=== PATIENT | male | born 1970 | race American Indian/Alaskan Native ===

== ENCOUNTER 2017-04-13 03:18 | Inpatient (IN) | payer OTHER ==
[2017-04-13] MEDS ORDERED: Azithromycin 500 MG in Sodium Chloride 0.9% 250 ML IVPB STA (03:46)
[2017-04-13] MEDS ORDERED: Promethazine/Cod 6.25mg-10mg/5ml Syr UD PO STA (03:49)
--- NOTE | 2017-04-13 04:03 | ED PDOC ---
HPI: CCC, URI, Sore Throat Time Seen by Provider: 04/13/17 03:28 Chief Complaint (Nursing): Cough, Cold, Congestion Chief Complaint (Provider): cough SOB x 1 week History Per: Patient History/Exam Limitations: no limitations Have you had recent travel within the past 21 days to any of the following countries: [place], [place], [place] or [place]?: No Onset/Duration Of Symptoms: Days (7) Current Symptoms Are (Timing): Still Present Sick Contacts (Context): Family Member(s) () Associated Symptoms: Fever, Chills, Cough Severity: Mild Pain Scale Rating Of: 3 Additional Complaint(s): Patient is a 47 yo AA male with c/o fever and dry cough z 1 week. 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 Dr paiz started pt on nnew course of Cipro however pt reports symptoms have worsened tonight with chills and fever and chest tightness as well as dyspnea. He denies N/V/D, rash. Past Medical History Reviewed: Historical Data, Nursing Documentation, Vital Signs Vital Signs: Last Vital Signs Temp 100.8 F H 04/13/17 05:15 Pulse 94 H 04/13/17 05:15 Resp 28 H 04/13/17 05:15 BP 102/70 04/13/17 05:15 Pulse Ox 98 04/13/17 05:51 - Medical History PMH: No Chronic Diseases Other PMH: Sickle Cell trait - Surgical History Surgical History: No Surg Hx - Family History Family History: States: No Known Family Hx - Living Arrangements Living Arrangements: With Family - Social History Current smoker - smoking cessation education provided: No Ex-Smoker (has not smoked in the last 12 months): No Alcohol: None Drugs: Denies - Home Medications Home Medications: Ambulatory Orders Medication Instructions Recorded No Known Home Med 04/13/17 - Allergies Allergies/Adverse Reactions: Allergies Allergy/AdvReac Type Severity Reaction Status Date / Time No Known Allergies Allergy Verified 04/13/17 03:31 Review of Systems ROS Statement: Except As Marked, All Systems Reviewed And Found Negative Constitutional: Positive for: Fever, Chills, Sweats, Weakness, Malaise Respiratory: Positive for: Cough, Shortness of Breath, Pleuritic Pain Physical Exam - Reviewed Nursing Documentation Reviewed: Yes Vital Signs Reviewed: Yes - Physical Exam Appears: Positive for: Non-toxic Head Exam: Positive for: ATRAUMATIC, NORMOCEPHALIC Skin: Positive for: Normal Color, Warm, Dry Eye Exam: Positive for: Normal appearance, EOMI, PERRL ENT: Positive for: Normal ENT Inspection Neck: Positive for: Normal, Painless ROM, Supple Cardiovascular/Chest: Positive for: Regular Rate, Rhythm, Tachycardia, Irregularly Irregular. Negative for: Chest Non Tender, Edema, Gallop Respiratory: Positive for: Decreased Breath Sounds. Negative for: Rales, Wheezing, Respiratory Distress Gastrointestinal/Abdominal: Positive for: Normal Exam, Bowel Sounds, Soft. Negative for: Tenderness Back: Positive for: Normal Inspection. Negative for: L CVA Tenderness, R CVA Tenderness Extremity: Positive for: Normal ROM. Negative for: Tenderness, Pedal Edema Neurologic/Psych: Positive for: Alert, Oriented. Negative for: Motor/Sensory Deficits - Laboratory Results Result Diagrams: 04/13/17 04:10 04/13/17 04:10 - ECG O2 Sat by Pulse Oximetry: 98 - Critical Care Total Time (In Min): 30 Medical Decision Making Medical Decision Makin yo male with febrile illness and cough Labs, EKG, Chest Xray ordered, Tylenol EKG sig for A Fib RVR 119 bpm; IV Cardizem ordered Labs reviewed show no clinically significant abnormalities with exception of UA that indicates UTI; IV Rocephin ordered Chest Xray NAD Patient reports mild improvement in symptoms however given persistent symptoms after outpatient trial of Abx as well as new onset A Fib RVR will admit. 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 admission DX Atrial Fibrillation RVR, Febrile Illness Fair Disposition - Clinical Impression Clinical Impression: Atrial fibrillation with rapid ventricular response, Febrile respiratory illness, UTI (urinary tract infection) - Patient ED Disposition Is Patient to be Admitted: Yes Discussed With : Jacob Jay Counseled Patient/Family Regarding: Studies Performed, Diagnosis - Disposition Disposition Time: 04:00 Condition: FAIR - Pt Status Changed To: Hospital Disposition Of: Inpatient - Admit Certification Admit to Inpatient:: After my assessment, the patient will require hospitalization for at least two midnights. This is because of the severity of symptoms shown, intensity of services needed, and/or the medical risk in this patient being treated as an outpatient. - POA Present On Arrival: None
[2017-04-13] MEDS ORDERED: Promethazine/Cod 6.25mg-10mg/5ml Syr UD ONE (04:12)
[2017-04-13] MEDS ORDERED: cefTRIAXone (Rocephin) 1 gm Inj ONE (04:12)
[2017-04-13 04:18] LABS: BASO % 0.2 % (0.0-2.0); EOS % 0.2 % (0.0-4.0); HEMATOCRIT 35.9 % (35.0-51.0); LYMPH # 0.8 K/uL (1.0-4.3); LYMPH % 7.6 % (20.0-40.0); MEAN CELL VOLUME 86.8 fl (80.0-94.0); MEAN CORPUSCULAR HEMOGLOBIN 30.1 pg (27.0-31.0); MEAN CORPUSCULAR HGB CONC 34.7 g/dL (33.0-37.0); MEAN PLATELET VOLUME 9.8 fl (7.2-11.7); MONO # 0.3 K/uL (0.0-0.8); MONO % 2.6 % (0.0-10.0); NEUT % 89.4 % (50.0-75.0); NRBC % 0.1 % (0.0-0.0); PLATELET COUNT 145 K/uL (130-400); RED CELL DISTRIBUTION WIDTH 14.4 % (11.5-14.5); WHITE BLOOD COUNT 10.1 K/uL (4.8-10.8)
[2017-04-13 04:25] LABS: PARTIAL THROMBOPLASTIN TIME 30.7 Seconds (25.6-37.1)
[2017-04-13 04:39] LABS: BLOOD UREA NITROGEN 16 mg/dl (9-20); CALCIUM 9.1 mg/dL (8.4-10.2); CARBON DIOXIDE 28 mmol/L (22-30); CHLORIDE 101 mmol/L (98-107); GFR AFRICAN-AMERICAN > 60; GLUCOSE,RANDOM 123 mg/dL (75-110); POTASSIUM 4.5 MMOL/L (3.6-5.0); SODIUM 139 mmol/l (132-148)
[2017-04-13 04:40] LABS: ALB/GLOB RATIO 1.2 (1.0-2.1); ALKALINE PHOSPHATASE 46 U/L (38-126); ALT/SGPT 32 U/L (21-72); AST/SGOT 32 U/L (17-59); BILIRUBIN,TOTAL 0.8 mg/dl (0.2-1.3)
[2017-04-13] MEDS ORDERED: Azithromycin 500 MG IV IVPB ONE (05:09)
[2017-04-13 05:52] LABS: RBC URINE 4 /hpf (0-3); URINE BACTERIA RARE (<OCC); URINE BILIRUBIN NEGATIVE (NEGATIVE); URINE BLOOD MODERATE (NEGATIVE); URINE COLOR YELLOW (YELLOW); URINE GLUCOSE (UA) NEG (Normal); URINE KETONE NEGATIVE (NEGATIVE); URINE LEUKOCYTE ESTERASE LARGE Leu/uL (Negative); URINE PROTEIN 30 mg/dL (NEGATIVE); URINE UROBILINOGEN 0.2-1.0 mg/dL (0.2-1.0); WBC URINE 95 /hpf (0-5)
[2017-04-13 07:11] LABS: NEUTROPHIL 91 % (42-75); TOTAL CELLS COUNTED 100
--- NOTE | 2017-04-13 09:55 | RAD ---
HISTORY: chest pain COMPARISON: No prior. FINDINGS: LUNGS: The lungs are well inflated and clear. PLEURA: No significant pleural effusion identified, no pneumothorax apparent. CARDIOVASCULAR: Normal. OSSEOUS STRUCTURES: No significant abnormalities. VISUALIZED UPPER ABDOMEN: Normal. OTHER FINDINGS: None. IMPRESSION: No active pulmonary disease.
--- NOTE | 2017-04-13 09:58 | CP.PCM.CON ---
History of Present Illness - History of Present Illness History of Present Illness: Consultation for evaluation of new onset Afib/flutter HPI: 47-year-old -[place] male with history of sickle cell trait who presented to the ER with complains of ongoing episodes of URI symptoms dry cough and fever for a week prior to presentation according to the patient he completed a course of antibiotics without any improvement symptoms got progressively worse he continued to have fever chills discomfort and dyspnea for which he came to the ER. On presentation he was noted to be in atrial flutter with controlled ventricular response heart rate was fluctuating in the 110s-120s range. He was initially started on IV Cardizem did not admitted for further observation and treatment. Prior to his episode of URI he denied having any chest pain shortness of breath palpitations dizziness syncope or presyncope. He was treated with course of ciprofloxacin by Dr. Maradiaga but did not have any improvement. Review of Systems - Review of Systems All systems: reviewed and no additional remarkable complaints except - Constitutional Constitutional: As Per HPI, Fatigue, Fever, Malaise - EENT Eyes: As Per HPI Ears: As Per HPI Nose/Mouth/Throat: As Per HPI - Cardiovascular Cardiovascular: As Per HPI - Respiratory Respiratory: As Per HPI, Cough, Dyspnea - Gastrointestinal Gastrointestinal: As Per HPI - Genitourinary Genitourinary: As Per HPI - Reproductive: Male Reproductive:Male: As Per HPI - Musculoskeletal Musculoskeletal: As Per HPI - Integumentary Integumentary: As Per HPI - Neurological Neurological: As Per HPI - Psychiatric Psychiatric: As Per HPI - Endocrine Endocrine: As Per HPI - Hematologic/Lymphatic Hematologic: As Per HPI Past Patient History - Past Medical History & Family History Pertinent Family History: no hx of CAD or HTN - Past Social History Alcohol: None Drugs: Denies - PSYCHIATRIC Hx Psychophysiologic Disorder: No - SURGICAL HISTORY Hx Surgeries: No - ANESTHESIA Hx Anesthesia: No Meds Allergies/Adverse Reactions: Allergies Allergy/AdvReac Type Severity Reaction Status Date / Time No Known Allergies Allergy Verified 04/13/17 03:31 - Medications Medications: Current Medications Diltiazem HCl 125 mg/ Sodium (Chloride) 125 mls @ 5 mls/hr IV .Q24H ONE; 5 MG/ HR PRN Reason: Protocol Stop: 04/14/17 03:33 Last Admin: 04/13/17 04:34 Dose: 5 mls/hr Ceftriaxone Sodium 1 gm/ (Sodium Chloride) 100 mls @ 100 mls/hr IVPB DAILY [facility] Physical Exam - Constitutional Appears: Well - Head Exam Head Exam: ATRAUMATIC, NORMAL INSPECTION, NORMOCEPHALIC - Eye Exam Eye Exam: EOMI, Normal appearance, PERRL Pupil Exam: NORMAL ACCOMODATION, PERRL - ENT Exam ENT Exam: Mucous Membranes Moist, Normal Exam - Neck Exam Neck exam: Positive for: Normal Inspection - Respiratory Exam Respiratory Exam: Clear to Auscultation Bilateral, NORMAL BREATHING PATTERN - Cardiovascular Exam Cardiovascular Exam: Irregular Rhythm, +S1, +S2, Systolic Murmur - GI/Abdominal Exam GI & Abdominal Exam: Normal Bowel Sounds, Soft. absent: Tenderness - Extremities Exam Extremities exam: Positive for: normal inspection - Back Exam Back exam: NORMAL INSPECTION - Neurological Exam Neurological exam: Alert, CN II-XII Intact, Oriented x3, Reflexes Normal - Psychiatric Exam Psychiatric exam: Normal Affect, Normal Mood - Skin Skin Exam: Dry, Intact, Normal Color, Warm Results - Vital Signs Recent Vital Signs: Last Vital Signs Temp 97.7 F 04/13/17 08:28 Pulse 86 04/13/17 08:28 Resp 20 04/13/17 08:28 BP 110/73 04/13/17 08:28 Pulse Ox 100 04/13/17 08:28 - Labs Result Diagrams: 04/13/17 04:10 04/13/17 04:10 Labs: Laboratory Results - last 24 hr 04/13/17 04/13/17 04/13/17 04:10 04:10 04:10 WBC 10.1 RBC 4.13 L Hgb 12.4 Hct 35.9 MCV 86.8 MCH 30.1 MCHC 34.7 RDW 14.4 Plt Count 145 MPV 9.8 Neut % (Auto) 89.4 H Lymph % (Auto) 7.6 L [place] % (Auto) 2.6 Eos % (Auto) 0.2 Baso % (Auto) 0.2 Neut # 9.0 H Lymph # 0.8 L [place] # 0.3 Eos # 0.0 Baso # 0.0 Neutrophils % (Manual) 91 H Lymphocytes % (Manual) 8 L Monocytes % (Manual) 1 Platelet Estimate Normal RBC Morphology Normal PT INR APTT Sodium 139 Potassium 4.5 Chloride 101 Carbon Dioxide 28 Anion Gap 15 BUN 16 Creatinine 1.1 Est GFR ( Amer) > 60 Est GFR (Non-Af Amer) > 60 Random Glucose 123 H Lactic Acid 1.0 Calcium 9.1 Total Bilirubin 0.8 AST 32 ALT 32 Alkaline Phosphatase 46 Troponin I < 0.0120 NT-Pro-B Natriuret Pep 117 Total Protein 8.0 Albumin 4.3 Globulin 3.7 Albumin/Globulin Ratio 1.2 Urine Color Urine Clarity Urine pH Ur Specific [place] Urine Protein Urine Glucose (UA) Urine Ketones Urine Blood Urine Nitrate Urine Bilirubin Urine Urobilinogen Ur Leukocyte Esterase Urine RBC (Auto) Urine Microscopic WBC Urine Bacteria Influenza Typ A,B (EIA) 04/13/17 04/13/17 04/13/17 04:10 04:10 05:31 WBC RBC Hgb Hct MCV MCH MCHC RDW Plt Count MPV Neut % (Auto) Lymph % (Auto) [place] % (Auto) Eos % (Auto) Baso % (Auto) Neut # Lymph # [place] # Eos # Baso # Neutrophils % (Manual) Lymphocytes % (Manual) Monocytes % (Manual) Platelet Estimate RBC Morphology PT 16.2 H INR 1.6 H APTT 30.7 Sodium Potassium Chloride Carbon Dioxide Anion Gap BUN Creatinine Est GFR ( Amer) Est GFR (Non-Af Amer) Random Glucose Lactic Acid Calcium Total Bilirubin AST ALT Alkaline Phosphatase Troponin I NT-Pro-B Natriuret Pep Total Protein Albumin Globulin Albumin/Globulin Ratio Urine Color Yellow Urine Clarity Cloudy Urine pH 6.0 Ur Specific [place] 1.012 Urine Protein 30 Urine Glucose (UA) Neg Urine Ketones Negative Urine Blood Moderate Urine Nitrate Negative Urine Bilirubin Negative Urine Urobilinogen 0.2-1.0 Ur Leukocyte Esterase Large Urine RBC (Auto) 4 H Urine Microscopic WBC 95 H Urine Bacteria Rare Influenza Typ A,B (EIA) Negative for flu a/b Assessment & Plan (1) Atrial fibrillation with rapid ventricular response Assessment and Plan: start on PO cardizem 60mg q6 hours and wean off IV cardizem Echo reviewed - EF 45% keep pt on asa will plan for RASHI cardioversion in am Status: Acute (2) CHF (congestive heart failure) Assessment and Plan: new onset CHF etiology most likely 2' to afib/flutter will re-evaluate EF with RASHI post cardioversion start on BB in am Status: Acute (3) Febrile respiratory illness Status: Acute (4) UTI (urinary tract infection) Status: Acute
--- NOTE | 2017-04-13 10:41 | CP.PCM.HP ---
<Cintia Jenkins - Last Filed: 04/13/17 10:37> History of Present Illness - History of Present Illness History of Present Illness: 47 yo AA male with no significant PMHx who presented today to ED c/o fever and dry cough x 1 week. Patient reports he completed course of outpatient antibiotics prescribed by PMD Dr uDran Paiz without improvement. As per patient Dr paiz started him on a new course of Cipro yesterday.Patient reported at ED that symptoms have worsened last night, with chills, fever, and chest tightness as well as dyspnea. Seen and examined with attending Patient denies CP, SOB, N/V, abdominal pain at this evaluation Present on Admission - Present on Admission Any Indicators Present on Admission: No History of DVT/PE: No History of Uncontrolled Diabetes: No Urinary Catheter: No Decubitus Ulcer Present: No Review of Systems - Review of Systems All systems: reviewed and no additional remarkable complaints except (as per HPI ) Past Patient History - Past Social History Alcohol: None Drugs: Denies - PSYCHIATRIC Hx Psychophysiologic Disorder: No - SURGICAL HISTORY Hx Surgeries: No - ANESTHESIA Hx Anesthesia: No Meds Allergies/Adverse Reactions: Allergies Allergy/AdvReac Type Severity Reaction Status Date / Time No Known Allergies Allergy Verified 04/13/17 03:31 Physical Exam - Constitutional Appears: No Acute Distress - ENT Exam ENT Exam: Mucous Membranes Moist - Respiratory Exam Respiratory Exam: Clear to Auscultation Bilateral, NORMAL BREATHING PATTERN - Cardiovascular Exam Cardiovascular Exam: REGULAR RHYTHM, +S1, +S2 - GI/Abdominal Exam GI & Abdominal Exam: Normal Bowel Sounds, Soft. absent: Distended, Firm, Guarding, Tenderness - Extremities Exam Extremities exam: Positive for: normal inspection. Negative for: calf tenderness, pedal edema - Neurological Exam Neurological exam: Alert, Oriented x3 - Psychiatric Exam Psychiatric exam: Normal Affect - Skin Skin Exam: Dry, Intact, Normal Color Results - Vital Signs Recent Vital Signs: Last Vital Signs Temp 97.7 F 04/13/17 08:28 Pulse 86 04/13/17 08:28 Resp 20 04/13/17 08:28 BP 110/73 04/13/17 08:28 Pulse Ox 100 04/13/17 08:28 - Labs Result Diagrams: 04/13/17 04:10 04/13/17 04:10 Labs: Laboratory Results - last 24 hr 04/13/17 04/13/17 04/13/17 04:10 04:10 04:10 WBC 10.1 RBC 4.13 L Hgb 12.4 Hct 35.9 MCV 86.8 MCH 30.1 MCHC 34.7 RDW 14.4 Plt Count 145 MPV 9.8 Neut % (Auto) 89.4 H Lymph % (Auto) 7.6 L [place] % (Auto) 2.6 Eos % (Auto) 0.2 Baso % (Auto) 0.2 Neut # 9.0 H Lymph # 0.8 L [place] # 0.3 Eos # 0.0 Baso # 0.0 Neutrophils % (Manual) 91 H Lymphocytes % (Manual) 8 L Monocytes % (Manual) 1 Platelet Estimate Normal RBC Morphology Normal PT INR APTT Sodium 139 Potassium 4.5 Chloride 101 Carbon Dioxide 28 Anion Gap 15 BUN 16 Creatinine 1.1 Est GFR ( Amer) > 60 Est GFR (Non-Af Amer) > 60 Random Glucose 123 H Lactic Acid 1.0 Calcium 9.1 Total Bilirubin 0.8 AST 32 ALT 32 Alkaline Phosphatase 46 Troponin I < 0.0120 NT-Pro-B Natriuret Pep 117 Total Protein 8.0 Albumin 4.3 Globulin 3.7 Albumin/Globulin Ratio 1.2 Urine Color Urine Clarity Urine pH Ur Specific [place] Urine Protein Urine Glucose (UA) Urine Ketones Urine Blood Urine Nitrate Urine Bilirubin Urine Urobilinogen Ur Leukocyte Esterase Urine RBC (Auto) Urine Microscopic WBC Urine Bacteria Influenza Typ A,B (EIA) 04/13/17 04/13/17 04/13/17 04:10 04:10 05:31 WBC RBC Hgb Hct MCV MCH MCHC RDW Plt Count MPV Neut % (Auto) Lymph % (Auto) [place] % (Auto) Eos % (Auto) Baso % (Auto) Neut # Lymph # [place] # Eos # Baso # Neutrophils % (Manual) Lymphocytes % (Manual) Monocytes % (Manual) Platelet Estimate RBC Morphology PT 16.2 H INR 1.6 H APTT 30.7 Sodium Potassium Chloride Carbon Dioxide Anion Gap BUN Creatinine Est GFR ( Amer) Est GFR (Non-Af Amer) Random Glucose Lactic Acid Calcium Total Bilirubin AST ALT Alkaline Phosphatase Troponin I NT-Pro-B Natriuret Pep Total Protein Albumin Globulin Albumin/Globulin Ratio Urine Color Yellow Urine Clarity Cloudy Urine pH 6.0 Ur Specific [place] 1.012 Urine Protein 30 Urine Glucose (UA) Neg Urine Ketones Negative Urine Blood Moderate Urine Nitrate Negative Urine Bilirubin Negative Urine Urobilinogen 0.2-1.0 Ur Leukocyte Esterase Large Urine RBC (Auto) 4 H Urine Microscopic WBC 95 H Urine Bacteria Rare Influenza Typ A,B (EIA) Negative for flu a/b Assessment & Plan - Assessment and Plan (Free Text) Assessment: 47 y/o M admitted to telemetry for evaluation of new onset Afib/flutter. Plan: New onset Afib/flutter admit to telemetry HR controlled Cardizem drip Cardiology consuylt appreciated, f/u Dr. Villarreal recommendations UTI -f/u urine culture -c/w Rocephin IV - Date & Time Date: 04/13/17 Time: 08:25 <Jacob Jay - Last Filed: 04/20/17 17:17> Results - Vital Signs Recent Vital Signs: Last Vital Signs Temp 97.8 F 04/17/17 08:08 Pulse 70 04/17/17 09:51 Resp 18 04/17/17 08:08 BP 108/65 04/17/17 09:51 Pulse Ox 98 04/17/17 08:08 - Labs Result Diagrams: 04/15/17 05:00 04/15/17 05:00 Assessment & Plan - Assessment and Plan (Free Text) Assessment: Patient was personally seen and examined by me in rounds with residents. Available labs and diagnostic data reviewed. Case, Patient's condition and management plan Discussed with residents in rounds. Agree with resident's progress note. Plan: As ordered.
--- NOTE | 2017-04-13 11:19 | CARD ---
APPROVED REPORT EKG Measurement Heart [id number] <Conclusion> Atrial flutter with variable AV block Left ventricular hypertrophy with repolarization abnormality Abnormal ECG
--- NOTE | 2017-04-13 18:18 | CARD ---
APPROVED REPORT EXAM: Two-dimensional and M-mode echocardiogram with Doppler and color Doppler. Other Information Quality : GoodRhythm : Atrial Flutter INDICATION Abnormal EKG/Arrhythmia A Flutter 2D DIMENSIONS IVSd1.19 (0.7-1.1cm)LVDd4.73 (3.9-5.9cm) LVOT Diameter2.36 (1.8-2.4cm)PWd1.30 (0.7-1.1cm) IVSs1.78 (0.8-1.2cm)LVDs3.70 (2.5-4.0cm) FS (%) 21.7 %PWs1.69 (0.8-1.2cm) M-Mode DIMENSIONS Left Atrium (MM)3.76 (2.5-4.0cm)IVSd1.12 (0.7-1.1cm) Aortic Root3.50 (2.2-3.7cm)LVDd5.47 (4.0-5.6cm) Aortic Cusp Exc.2.47 (1.5-2.0cm)PWd1.00 (0.7-1.1cm) IVSs1.47 cmFS (%) 30 % LVDs3.85 (2.0-3.8cm)PWs1.59 cm Mitral Valve E/A ratio0.0 TDI E/Lateral E'0.0E/Medial E'0.0 Pulmonary Valve PV Peak Agwdvrvp97.6cm/s Tricuspid Valve TR Peak [id number] Peak Gr.10mmHg [id number] LEFT VENTRICLE The left ventricle is normal size. There is normal left ventricular wall thickness. Left ventricle systolic function is mildly to moderately impaired. The Ejection Fraction is 40-45%. The left ventricular function appears to vary from one view to another. The LV function was best assessed on the 2D apical 4 chamber view and has mild to moderate hypokinesia. The patient was in atrial flutter. No left ventricle thrombus noted on this study. There is no ventricular septal defect visualized. There is no left ventricular aneurysm. There is no mass noted in the left ventricle. RIGHT VENTRICLE The RV size appears to vary from one view to another, but it appears at least mildly dilated. There is normal right ventricular wall thickness. The right ventricular systolic function is normal. ATRIA The left atrium is mildly dilated on the 2D study. The right atrium is moderately dilated. The interatrial septum is intact with no evidence for an atrial septal defect. AORTIC VALVE The aortic valve is normal in structure and function. No aortic regurgitation is present. There is no aortic valvular stenosis. MITRAL VALVE The mitral valve is normal in structure and function. There is no evidence of mitral valve prolapse. There is no mitral valve stenosis. Mitral regurgitation is mild. TRICUSPID VALVE The tricuspid valve is normal in structure and function. There is mild tricuspid regurgitation. Right ventricular systolic pressure is estimated at 21 mmHg. There is no tricuspid valve prolapse or vegetation. There is no tricuspid valve stenosis. PULMONIC VALVE The pulmonary valve is normal in structure and function. There is no pulmonic valvular regurgitation. GREAT VESSELS The aortic root is normal in size. The IVC is normal in size and collapses >50% with inspiration. PERICARDIAL EFFUSION The pericardium appears normal. There is no pleural effusion. <Conclusion> The left ventricle is normal in size and wall thickness. Left ventricle systolic function is mildly to moderately impaired. The Ejection Fraction is 40-45%. The left atrium and right atrium are dilated. The mitral, aortic and tricuspid valves are normal. There is mild mitral regurgitation and mild tricuspid regurgitation. Note: The patient was in atrial flutter during this study.
--- NOTE | 2017-04-14 07:58 | CP.PCM.PN ---
<VinodramonanoraCintia - Last Filed: 04/14/17 11:33> Subjective - Date & Time of Evaluation Date of Evaluation: 04/14/17 Time of Evaluation: 07:05 - Subjective Subjective: patient seen and examined with attending patient denies CP, SOB, cough, chills, abd pain, dizziness or other complains had an uneventful night afebrile, HR 60s-80s Objective - Vital Signs/Intake and Output Vital Signs (last 24 hours): Temp Pulse Resp BP Pulse Ox 97.7 F 74 18 119/86 98 04/14/17 04:54 04/14/17 07:45 04/14/17 04:54 04/14/17 04:54 04/14/17 04:54 - Medications Medications: Current Medications Aspirin (Aspirin Chewable) 81 mg PO DAILY [facility] Last Admin: 04/13/17 15:48 Dose: 81 mg Diltiazem HCl (Cardizem) 60 mg PO Q6 [facility] Last Admin: 04/14/17 04:10 Dose: 60 mg Ceftriaxone Sodium 1 gm/ (Sodium Chloride) 100 mls @ 100 mls/hr IVPB DAILY [facility] - Labs Labs: 04/13/17 04:10 04/13/17 04:10 PT 16.2 Seconds (9.8-13.1) H 04/13/17 04:10 INR 1.6 (0.9-1.2) H 04/13/17 04:10 APTT 30.7 Seconds (25.6-37.1) 04/13/17 04:10 - Constitutional Appears: No Acute Distress - ENT Exam ENT Exam: Mucous Membranes Moist - Respiratory Exam Respiratory Exam: Clear to Ausculation Bilateral, NORMAL BREATHING PATTERN - Cardiovascular Exam Cardiovascular Exam: REGULAR RHYTHM, +S1, +S2 - GI/Abdominal Exam GI & Abdominal Exam: Soft, Normal Bowel Sounds. absent: Distended, Guarding, Rigid, Tenderness - Extremities Exam Extremities Exam: Normal Inspection. absent: Calf Tenderness, Pedal Edema - Neurological Exam Neurological Exam: Alert, Awake, Oriented x3 - Skin Skin Exam: Dry, Intact, Normal Color Assessment and Plan - Assessment and Plan (Free Text) Assessment: 47 y/o M admitted to telemetry for evaluation of new onset Afib/flutter. Plan: New onset Afib/flutter started on PO cardizem 60mg q6 hours as per cardiology recommendation. DC Cardizem drip Echo reviewed and showed EF 40-45% c/w aspirin possible for RASHI and cardioversion today by Dr. Villarreal f/u Dr. Villarreal recommendations Congestion heart failure new onset CHF etiology most likely 2' to afib/flutter f/u EF with RASHI post cardioversion consider beta-maryann as per Cardiology rec UTI -f/u urine culture -c/w Rocephin IV DVT prophylaxis ambulating <Jacob Jay K - Last Filed: 04/20/17 17:21> Objective - Vital Signs/Intake and Output Vital Signs (last 24 hours): Temp Pulse Resp BP Pulse Ox 97.8 F 70 18 108/65 98 04/17/17 08:08 04/17/17 09:51 04/17/17 08:08 04/17/17 09:51 04/17/17 08:08 - Labs Labs: 04/15/17 05:00 04/15/17 05:00 PT 14.7 Seconds (9.8-13.1) H 04/15/17 05:00 INR 1.4 (0.9-1.2) H 04/15/17 05:00 APTT 30.7 Seconds (25.6-37.1) 04/13/17 04:10 Assessment and Plan - Assessment and Plan (Free Text) Assessment: Patient was personally seen and examined by me in rounds with residents. Available labs and diagnostic data reviewed. Case, Patient's condition and management plan Discussed with residents in rounds. Agree with resident's progress note. Plan: As ordered.
[2017-04-14] MEDS ORDERED: Sodium Chloride 0.9% 1,000 ML IV ONE (11:00)
[2017-04-14] MEDS ORDERED: Propofol 10 mg/ml Inj (20 ML) ONE (11:16)
[2017-04-14] MEDS ORDERED: Etomidate 20 mg/10ml Inj IV ONE (11:16)
[2017-04-14] MEDS ORDERED: Perflutren Lipid Microsphere 1.5 ML SUS IV ONE (11:42)
[2017-04-14] MEDS: Enoxaparin 100 mg Syringe SC SCH ×2 (13:34→21:38)
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
[2017-04-15 06:57] LABS: HEMATOCRIT 39.8 % (35.0-51.0); MEAN CELL VOLUME 87.3 fl (80.0-94.0); MEAN CORPUSCULAR HEMOGLOBIN 29.5 pg (27.0-31.0); MEAN CORPUSCULAR HGB CONC 33.8 g/dL (33.0-37.0); RED CELL DISTRIBUTION WIDTH 14.7 % (11.5-14.5); WHITE BLOOD COUNT 3.8 K/uL (4.8-10.8)
[2017-04-15 07:00] LABS: BLOOD UREA NITROGEN 17 mg/dl (9-20); CALCIUM 9.7 mg/dL (8.4-10.2); CARBON DIOXIDE 24 mmol/L (22-30); CHLORIDE 103 mmol/L (98-107); CHOLESTEROL 173 mg/dL (0-199); GFR AFRICAN-AMERICAN > 60; GLUCOSE,RANDOM 101 mg/dL (75-110); POTASSIUM 4.3 MMOL/L (3.6-5.0); SODIUM 140 mmol/l (132-148)
[2017-04-15 07:18] LABS: T4 9.34 ug/dl (5.5-11.0)
[2017-04-15 07:30] LABS: THYROID STIMULATING HORMONE 3.23 mIU/ML (0.46-4.68)
--- NOTE | 2017-04-15 08:18 | CP.PCM.PN ---
<Cintia Jenkins - Last Filed: 04/15/17 08:15> Subjective - Date & Time of Evaluation Date of Evaluation: 04/15/17 Time of Evaluation: 07:00 - Subjective Subjective: patient seen and examined with attending Denies CP, SOB, N/V, cough, abdominal pain or other complains at this eval Afebrile, VS stable s/p RASHI on 04/14/17 had an uneventful night Objective - Vital Signs/Intake and Output Vital Signs (last 24 hours): Temp Pulse Resp BP Pulse Ox 97.5 F L 70 19 119/74 99 04/15/17 04:42 04/15/17 04:50 04/15/17 04:42 04/15/17 04:50 04/15/17 04:42 - Medications Medications: Current Medications Aspirin (Aspirin Chewable) 81 mg PO DAILY [facility] Last Admin: 04/14/17 08:12 Dose: 81 mg Diltiazem HCl (Cardizem) 60 mg PO Q6 [facility] Last Admin: 04/15/17 04:50 Dose: 60 mg Enoxaparin Sodium (Lovenox) 90 mg SC Q12 [facility] PRN Reason: Protocol Last Admin: 04/14/17 21:38 Dose: 90 mg Furosemide (Lasix) 20 mg PO DAILY [facility] Last Admin: 04/14/17 13:33 Dose: 20 mg Ceftriaxone Sodium 1 gm/ (Sodium Chloride) 100 mls @ 100 mls/hr IVPB DAILY [facility] Last Admin: 04/14/17 08:13 Dose: 100 mls/hr Lisinopril (Zestril) 2.5 mg PO DAILY [facility] Last Admin: 04/14/17 14:38 Dose: 2.5 mg Metoprolol Tartrate (Lopressor) 50 mg PO Q12 [facility] Last Admin: 04/14/17 21:37 Dose: Not Given - Labs Labs: 04/15/17 05:00 04/15/17 05:00 PT 14.7 Seconds (9.8-13.1) H 04/15/17 05:00 INR 1.4 (0.9-1.2) H 04/15/17 05:00 APTT 30.7 Seconds (25.6-37.1) 04/13/17 04:10 - Additional Findings Additional findings: Constitutional Appears: No Acute Distress - ENT Exam ENT Exam: Mucous Membranes Moist - Respiratory Exam Respiratory Exam: Clear to Ausculation Bilateral, NORMAL BREATHING PATTERN - Cardiovascular Exam Cardiovascular Exam: IRREGULAR RHYTHM, +S1, +S2 - GI/Abdominal Exam GI & Abdominal Exam: Soft, Normal Bowel Sounds. absent: Distended, Guarding, Rigid, Tenderness - Extremities Exam Extremities Exam: Normal Inspection. absent: Calf Tenderness, Pedal Edema - Neurological Exam Neurological Exam: Alert, Awake, Oriented x3 - Skin Skin Exam: Dry, Intact, Normal Color Assessment and Plan - Assessment and Plan (Free Text) Assessment: 47 y/o M with new onset Afib/flutter, Systolic CHF. 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 Echo reviewed and showed EF 40-45% RASHI showing EF of 20-25% with LA clot on 04/14/17 c/w aspirin possible for RASHI and cardioversion today by Dr. Villarreal f/u Dr. Villarreal recommendations Systolic Congestion heart failure new onset CHF etiology most likely 2' to afib/flutter RASHI showing EF of 20-25% with LA clot on 04/14/17 started on lasix, lisinopril, and metoprolol started on lovenox therapeutic consider discussion of spirinolactone, f/u BP consider Cardiac rehab, and referral for Cardiac transplant list consider defibrillator UTI -f/u urine culture -c/w Rocephin IV DVT prophylaxis ambulating on lovenox therapeutic <Jacob Jay K - Last Filed: 04/20/17 17:25> Objective - Vital Signs/Intake and Output Vital Signs (last 24 hours): Temp Pulse Resp BP Pulse Ox 97.8 F 70 18 108/65 98 04/17/17 08:08 04/17/17 09:51 04/17/17 08:08 04/17/17 09:51 04/17/17 08:08 - Labs Labs: 04/15/17 05:00 04/15/17 05:00 PT 14.7 Seconds (9.8-13.1) H 04/15/17 05:00 INR 1.4 (0.9-1.2) H 04/15/17 05:00 APTT 30.7 Seconds (25.6-37.1) 04/13/17 04:10 Assessment and Plan - Assessment and Plan (Free Text) Assessment: Patient was personally seen and examined by me in rounds with residents. Available labs and diagnostic data reviewed. Case, Patient's condition and management plan Discussed with residents in rounds. Agree with resident's progress note. Plan: As ordered.
[2017-04-15] MEDS: Enoxaparin 100 mg Syringe SC SCH ×2 (09:23→20:47)
[2017-04-15] MEDS ORDERED: Benzocaine/Menthol (Cepacol) Lozenge PO PRN (11:08)
--- NOTE | 2017-04-15 23:32 | CP.PCM.PN ---
Subjective - Date & Time of Evaluation Date of Evaluation: 04/15/17 Time of Evaluation: 11:45 - Subjective Subjective: feeling fine on bb and acei low dose lasix cough improving Objective - Vital Signs/Intake and Output Vital Signs (last 24 hours): Temp Pulse Resp BP Pulse Ox 98 F 55 L 16 112/68 98 04/15/17 19:40 04/15/17 20:46 04/15/17 19:40 04/15/17 20:46 04/15/17 19:40 Intake and Output: 04/15/17 04/16/17 18:59 06:59 Intake Total 1420 Balance 1420 - Medications Medications: Current Medications Aspirin (Aspirin Chewable) 81 mg PO DAILY [facility] Last Admin: 04/15/17 09:25 Dose: 81 mg Benzocaine/Menthol (Cepacol Sore Throat) 1 rizwana PO Q3 PRN PRN Reason: Sore Throat Diltiazem HCl (Cardizem) 60 mg PO Q6 [facility] Last Admin: 04/15/17 16:26 Dose: 60 mg Enoxaparin Sodium (Lovenox) 90 mg SC Q12 [facility] PRN Reason: Protocol Last Admin: 04/15/17 20:47 Dose: 90 mg Furosemide (Lasix) 20 mg PO DAILY [facility] Last Admin: 04/15/17 09:25 Dose: 20 mg Ceftriaxone Sodium 1 gm/ (Sodium Chloride) 100 mls @ 100 mls/hr IVPB DAILY [facility] Last Admin: 04/15/17 09:21 Dose: 100 mls/hr Lisinopril (Zestril) 2.5 mg PO DAILY [facility] Last Admin: 04/15/17 09:24 Dose: 2.5 mg Metoprolol Tartrate (Lopressor) 50 mg PO Q12 [facility] Last Admin: 04/15/17 20:46 Dose: Not Given - Labs Labs: 04/15/17 05:00 04/15/17 05:00 PT 14.7 Seconds (9.8-13.1) H 04/15/17 05:00 INR 1.4 (0.9-1.2) H 04/15/17 05:00 APTT 30.7 Seconds (25.6-37.1) 04/13/17 04:10 - Constitutional Appears: Well - Head Exam Head Exam: ATRAUMATIC, NORMAL INSPECTION, NORMOCEPHALIC - Eye Exam Eye Exam: EOMI, Normal appearance, PERRL Pupil Exam: NORMAL ACCOMODATION, PERRL - ENT Exam ENT Exam: Mucous Membranes Moist, Normal Exam - Neck Exam Neck Exam: Full ROM, Normal Inspection. absent: Lymphadenopathy - Respiratory Exam Respiratory Exam: Clear to Ausculation Bilateral, NORMAL BREATHING PATTERN - Cardiovascular Exam Cardiovascular Exam: Irregular Rhythm, +S1, +S2, Murmur - GI/Abdominal Exam GI & Abdominal Exam: Soft, Normal Bowel Sounds. absent: Tenderness - Extremities Exam Extremities Exam: Full ROM, Normal Capillary Refill, Normal Inspection. absent : Joint Swelling, Pedal Edema - Back Exam Back Exam: NORMAL INSPECTION - Neurological Exam Neurological Exam: Alert, Awake, CN II-XII Intact, Oriented x3 - Psychiatric Exam Psychiatric exam: Normal Affect, Normal Mood - Skin Skin Exam: Dry, Intact, Normal Color, Warm Assessment and Plan (1) Atrial fibrillation with rapid ventricular response Assessment & Plan: etiology ? IHD on bb and ccb will chg to OAC in am Status: Acute (2) CHF (congestive heart failure) Assessment & Plan: new onset plan for stress test in am Status: Acute (3) Febrile respiratory illness Status: Acute (4) UTI (urinary tract infection) Status: Acute
--- NOTE | 2017-04-16 09:08 | CP.PCM.PN ---
<Cintia Jenkins - Last Filed: 04/16/17 09:05> Subjective - Date & Time of Evaluation Date of Evaluation: 04/16/17 Time of Evaluation: 06:50 - Subjective Subjective: patient seen and examined with attending this morning Afebrile, HR controlled with meds Denies CP, SOB, N/V, abdominal pain, diarrheas had an uneventful night Objective - Vital Signs/Intake and Output Vital Signs (last 24 hours): Temp Pulse Resp BP Pulse Ox 97.8 F 63 18 126/77 98 04/16/17 05:13 04/16/17 05:13 04/16/17 05:13 04/16/17 05:13 04/16/17 05:13 Intake and Output: 04/16/17 04/16/17 06:59 18:59 Intake Total 300 Output Total 220 Balance 80 - Medications Medications: Current Medications Aspirin (Aspirin Chewable) 81 mg PO DAILY [facility] Last Admin: 04/15/17 09:25 Dose: 81 mg Benzocaine/Menthol (Cepacol Sore Throat) 1 rizwana PO Q3 PRN PRN Reason: Sore Throat Diltiazem HCl (Cardizem) 60 mg PO Q6 [facility] Last Admin: 04/16/17 05:00 Dose: Not Given Enoxaparin Sodium (Lovenox) 90 mg SC Q12 [facility] PRN Reason: Protocol Last Admin: 04/15/17 20:47 Dose: 90 mg Furosemide (Lasix) 20 mg PO DAILY [facility] Last Admin: 04/15/17 09:25 Dose: 20 mg Ceftriaxone Sodium 1 gm/ (Sodium Chloride) 100 mls @ 100 mls/hr IVPB DAILY [facility] Last Admin: 04/15/17 09:21 Dose: 100 mls/hr Lisinopril (Zestril) 2.5 mg PO DAILY [facility] Last Admin: 04/15/17 09:24 Dose: 2.5 mg Metoprolol Tartrate (Lopressor) 50 mg PO Q12 [facility] Last Admin: 04/15/17 20:46 Dose: Not Given - Labs Labs: 04/15/17 05:00 04/15/17 05:00 PT 14.7 Seconds (9.8-13.1) H 04/15/17 05:00 INR 1.4 (0.9-1.2) H 04/15/17 05:00 APTT 30.7 Seconds (25.6-37.1) 04/13/17 04:10 - Constitutional Appears: No Acute Distress - ENT Exam ENT Exam: Mucous Membranes Moist - Respiratory Exam Respiratory Exam: Clear to Ausculation Bilateral, NORMAL BREATHING PATTERN - Cardiovascular Exam Cardiovascular Exam: Irregular Rhythm, +S1, +S2 - GI/Abdominal Exam GI & Abdominal Exam: Soft, Normal Bowel Sounds. absent: Distended, Guarding, Rigid, Tenderness - Extremities Exam Extremities Exam: Normal Inspection. absent: Calf Tenderness, Pedal Edema - Neurological Exam Neurological Exam: Alert, Awake, Oriented x3 - Skin Skin Exam: Dry, Intact, Normal Color Assessment and Plan - Assessment and Plan (Free Text) Assessment: 47 y/o M with new onset Afib/flutter, Systolic CHF. 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 Echo reviewed and showed EF 40-45% RASHI showing EF of 20-25% with LA clot on 04/14/17 c/w aspirin possible for RASHI and cardioversion today by Dr. Villarreal f/u Dr. Villarreal recommendations NPO after midnight for Myocardial Perfusion stress test today by Dr. Villarreal Systolic Congestion heart failure new onset CHF etiology most likely 2' to afib/flutter RASHI showing EF of 20-25% with LA clot on 04/14/17 started on lasix, lisinopril, and metoprolol started on lovenox therapeutic consider discussion of spirinolactone, f/u BP consider Cardiac rehab, and referral for Cardiac transplant list consider defibrillator UTI -f/u urine culture -c/w Rocephin IV DVT prophylaxis ambulating on lovenox therapeutic <Jacob Jay K - Last Filed: 04/21/17 10:07> Objective - Vital Signs/Intake and Output Vital Signs (last 24 hours): Temp Pulse Resp BP Pulse Ox 97.8 F 70 18 108/65 98 04/17/17 08:08 04/17/17 09:51 04/17/17 08:08 04/17/17 09:51 04/17/17 08:08 - Labs Labs: 04/15/17 05:00 04/15/17 05:00 PT 14.7 Seconds (9.8-13.1) H 04/15/17 05:00 INR 1.4 (0.9-1.2) H 04/15/17 05:00 APTT 30.7 Seconds (25.6-37.1) 04/13/17 04:10 Assessment and Plan - Assessment and Plan (Free Text) Assessment: Patient was personally seen and examined by me in rounds with residents. Available labs and diagnostic data reviewed. Case, Patient's condition and management plan Discussed with residents in rounds. Agree with resident's progress note. Plan: As ordered.
[2017-04-16] MEDS ORDERED: Aminophylline 25 mg/ml Inj ONE (09:22)
[2017-04-16] MEDS ORDERED: Metoprolol 1 mg/ml Inj IVP ONE (10:32)
[2017-04-16] MEDS: Enoxaparin 100 mg Syringe SC SCH ×2 (11:44→21:47)
--- NOTE | 2017-04-17 03:17 | CP.PCM.PN ---
Subjective - Date & Time of Evaluation Date of Evaluation: 04/16/17 Time of Evaluation: 18:30 - Subjective Subjective: feeling fine, denies any complaints HR controlled Objective - Vital Signs/Intake and Output Vital Signs (last 24 hours): Temp Pulse Resp BP Pulse Ox 97.8 F 57 L 18 124/77 97 04/17/17 00:08 04/17/17 00:08 04/17/17 00:08 04/17/17 00:08 04/17/17 00:08 Intake and Output: 04/16/17 04/17/17 18:59 06:59 Intake Total 600 Balance 600 - Medications Medications: Current Medications Aspirin (Aspirin Chewable) 81 mg PO DAILY [facility] Last Admin: 04/16/17 11:45 Dose: 81 mg Benzocaine/Menthol (Cepacol Sore Throat) 1 rizwana PO Q3 PRN PRN Reason: Sore Throat Diltiazem HCl (Cardizem) 60 mg PO Q6 [facility] Last Admin: 04/16/17 21:45 Dose: 60 mg Enoxaparin Sodium (Lovenox) 90 mg SC Q12 [facility] PRN Reason: Protocol Last Admin: 04/16/17 21:47 Dose: 90 mg Furosemide (Lasix) 20 mg PO DAILY [facility] Last Admin: 04/16/17 11:45 Dose: 20 mg Ceftriaxone Sodium 1 gm/ (Sodium Chloride) 100 mls @ 100 mls/hr IVPB DAILY [facility] Last Admin: 04/16/17 11:43 Dose: 100 mls/hr Lisinopril (Zestril) 2.5 mg PO DAILY [facility] Last Admin: 04/16/17 11:46 Dose: Not Given Metoprolol Tartrate (Lopressor) 50 mg PO Q12 [facility] Last Admin: 04/16/17 21:46 Dose: 50 mg - Labs Labs: 04/15/17 05:00 04/15/17 05:00 PT 14.7 Seconds (9.8-13.1) H 04/15/17 05:00 INR 1.4 (0.9-1.2) H 04/15/17 05:00 APTT 30.7 Seconds (25.6-37.1) 04/13/17 04:10 - Constitutional Appears: Well - Head Exam Head Exam: ATRAUMATIC, NORMAL INSPECTION, NORMOCEPHALIC - Eye Exam Eye Exam: EOMI, Normal appearance, PERRL Pupil Exam: NORMAL ACCOMODATION, PERRL - ENT Exam ENT Exam: Mucous Membranes Moist, Normal Exam - Neck Exam Neck Exam: Full ROM, Normal Inspection. absent: Lymphadenopathy - Respiratory Exam Respiratory Exam: Clear to Ausculation Bilateral, NORMAL BREATHING PATTERN - Cardiovascular Exam Cardiovascular Exam: Irregular Rhythm, +S1, +S2, Murmur - GI/Abdominal Exam GI & Abdominal Exam: Soft, Normal Bowel Sounds. absent: Tenderness - Extremities Exam Extremities Exam: Full ROM, Normal Capillary Refill, Normal Inspection. absent : Joint Swelling, Pedal Edema - Back Exam Back Exam: NORMAL INSPECTION - Neurological Exam Neurological Exam: Alert, Awake, CN II-XII Intact, Normal Gait, Oriented x3 - Psychiatric Exam Psychiatric exam: Normal Affect, Normal Mood - Skin Skin Exam: Dry, Intact, Normal Color, Warm Assessment and Plan (1) Atrial fibrillation with rapid ventricular response Assessment & Plan: rate controlled will start on eliquis 5mg po bid increase metoprolol to 100mg po bid slowly wean off PO cardizem Status: Acute (2) CHF (congestive heart failure) Assessment & Plan: on BB and ACEi etiology most likely tachycardia induced stress test - no perfusion abnormality Status: Acute (3) Febrile respiratory illness Status: Acute (4) UTI (urinary tract infection) Status: Acute
[2017-04-17 08:09] VITALS: BP 108/65; PULSE 70; RESP 18; TEMP 97.8; O2SAT 98
--- NOTE | 2017-04-17 11:52 | PN ---
DATE: 04/17/2017 SUBJECTIVE: The patient seen and examined. Interim events noted. Consult noted, appreciated. Cardiology followup and intervention noted and appreciated. Case was discussed with Cardiology. The patient underwent stress test, Currently, the patient feels okay. No specific complaints. No chest pain. No shortness of breath, no palpitations. No dizziness or loss of consciousness. PHYSICAL EXAMINATION: GENERAL: The patient is in no acute distress. VITAL SIGNS: Stable. HEART: S1 and S2 normal, regular. LUNGS: Good bilateral air entry. ABDOMEN: Soft, nontender. EXTREMITIES: No edema. No calf swelling or tenderness. No acute ischemia. CENTRAL NERVOUS SYSTEM: Essentially unchanged. DIAGNOSTIC DATA: Available diagnostic data reviewed. Telemetry monitoring does not reveal significant arrhythmia. ASSESSMENT: Overall, the patient's general medical condition is stable. PLAN: The patient's plan discussed with the patient at length and plan as ordered. Jacob Jay MD
--- NOTE | 2017-04-22 10:44 | CARD ---
APPROVED REPORT Protocol: LEXISCAN Test Type: Stress Nuclear Medications: ASPIRIN 81MG CARDIZEM 60MG LOVENOX 90MG LASIX 20MG ZESTRIL 2.5MG LOPRESSOR 50MG Medical History: AFLUTTER FIB, CHF Target HR: 172 bpm Resting ECG: atrial fibrillation Resting Heart Rate: 136 bpm Resting Blood Pressure: 111/80mmHg submaximum (85%): 146 bpm TEST SUMMARY [id number]. [id number]. INJECTIONNS [id number]. INJECTIONNUC [id number]. [id number]. POST EXERCISE Reason for Termination: PROTOCOL COMPLETED Target HR: No Max HR: 136 bpm 81% of Maximum Predicted HR: 172 bpm Exercise duration: 01:00 min:sec, 0 Stage Exercise capacity: 1.0METs Max Blood Pressure: 131/79mmHg Blood Pressure response to exercise: na Heart Rate response to exercise: na Chest Pain: No, none Angina index: 0 Arrhythmia: No, none ST Change: Yes, Depression downsloping Deviation: 0 mm Clinical Indications Under Appropriate Use Criteria New onset CHF Stress EKG Interpretation - Downsloping ST changes post lexiscan infusion ( tachycardia related ) RESTING ECG Rhythm: Atrial FibrillationEctopic Atrial Conduction: Normal Arrhythmias: Artial Fibrilation Repolarization: nonspecific ST-T changes STRESS ECG Rhythm: Atrial Fibrillation Conduction: Normal Arrhythmias: Artial Fibrilation Repolarization: ST depression ST-Segment changes: Nondiagnostic resting ST abnormalities. Stress EKG shows no significant changes. EXAM: Myocardial Perfusion REST/STRESS Image QualityGood Imaging Protocol The imaging protocol used to acquire images was Rest Tc-99m/stress Tc-99m 1 day Rest Spect myocardial perfusion imaging was performed in supine position 50 minutes following the injection of 10 mCi of Tc-99 Myoview. Time of rest injection: 7;40 Time of rest imagin:30 At peak stress, the patient was injected intravenously with 30mCi of Tc-99 tetrofosmin after an infusion time of minutes and seconds. Time of stress injection: 10:40 Time of stress imagin:08 Gated Stress Spect was performed 135 minutes after intravenous Tc-99 Myoview injection. The images were gated to evaluate regional wall motion and calculate ventricular ejection fraction. NUCLEAR IMAGE INTERPRETATION Study quality was good. Left Ventricular size was Normal at Rest and Stress. The rest and stress images show normal perfusion, normal contraction and thickening. Wall Motion Global hypokinesis CONCLUSION 1. - Small apical defect secondary to motion artifact 2. - Moderate global hypokinesis Recommendation - GDMT for CHF and atrial fibrillation
--- NOTE | 2017-04-29 21:43 | CARD ---
APPROVED REPORT EXAM: Transesophageal echocardiogram with color flow Doppler and Synchronized Cardioversion. INDICATION CARDIOVERSION Echo Enhancing Agent Indication: Rule out thrombus Agent/Amount Used: Definity Reason For Test : Rule out Intracardiac Thrombus. PROCEDURE After obtaining informed consent, patient underwent transesophageal echo in the ICU/CCU. Type of Sedation : Conscious Sedation Sedation was provided by anesthesiologist. Sedation was achieved with intravenously. Transesophageal probe was inserted and advanced into esophagus without difficulty. The RASHI was performed without complications. Throughout the procedure, the blood pressure, pulse oximetry, cardiac rhythm, and rate were monitored. The patient tolerated the procedure without adverse effects. Recovery from conscious sedation was uneventful and vital signs were stable. LEFT VENTRICLE The left ventricle is normal size. There is borderline to mild concentric left ventricular hypertrophy. Left ventricle systolic function is moderately to severely impaired. The Ejection Fraction is 20-25%. There is global hypokinesis of the left ventricle. The left ventricular diastolic function is abnormal. No left ventricle thrombus noted on this study. There is no ventricular septal defect visualized. There is no left ventricular aneurysm. There is no mass noted in the left ventricle. RIGHT VENTRICLE The right ventricle is normal size. There is normal right ventricular wall thickness. The right ventricular systolic function is normal. ATRIA The left atrium is mildly dilated. There is a thrombus suspected in the left atrium. Significant spontaneous echo-contrast noted in the left atrium. JONY emptying velocities are < 30 cm/s The right atrium is mildly dilated. The interatrial septum is intact with no evidence for an atrial septal defect. AORTIC VALVE The aortic valve is normal in structure and function. No aortic regurgitation is present. There is no aortic valvular stenosis. There is no aortic valvular vegetation. MITRAL VALVE The mitral valve is normal in structure and function. There is no evidence of mitral valve prolapse. There is no mitral valve stenosis. Mitral regurgitation is mild. TRICUSPID VALVE The tricuspid valve is normal in structure and function. There is mild tricuspid regurgitation. There is no tricuspid valve prolapse or vegetation. There is no tricuspid valve stenosis. PULMONIC VALVE The pulmonary valve is normal in structure and function. There is no pulmonic valvular regurgitation. There is no pulmonic valvular stenosis. GREAT VESSELS The aortic root is normal in size. The ascending aorta is normal in size. The pulmonary artery is normal. The IVC was not visualized. PERICARDIAL EFFUSION The pericardium appears normal. There is no pleural effusion. <Conclusion> Left ventricle systolic function is moderately to severely impaired. The Ejection Fraction is 20-25%. There is global hypokinesis of the left ventricle. Mitral regurgitation is mild. The left ventricular diastolic function is abnormal.
== END 2017-04-17 11:30 | disposition home or self-care (01) | DRG 309 ==
LOC: H.ER 03:18 → H.ERHOLD 03:48 → H.TEL 06:32
PROVIDERS: ADMIT Internal Medicine; ATTEND Internal Medicine
PROC: B246ZZ4 Ultrasonography of Right and Left Heart, Transesophageal (ICD-10-PCS; 2017-04-14)
PROC: 5A2204Z Restoration of Cardiac Rhythm, Single (ICD-10-PCS; principal; 2017-04-14 11:00)
DX: I48.91 Unspecified atrial fibrillation (principal); N39.0 Urinary tract infection, site not specified; I50.20 Unspecified systolic (congestive) heart failure; I48.92 Unspecified atrial flutter; I34.0 Nonrheumatic mitral (valve) insufficiency; D57.3 Sickle-cell trait; J06.9 Acute upper respiratory infection, unspecified